=== PATIENT | male | born 1995 | race Caucasian/White ===

== ENCOUNTER 2016-07-28 18:23 | Emergency (ER) | payer OTHER ==
[2016-07-28 18:39] VITALS: BP 134/64; PULSE 110; TEMP 98.9; BMI 31.0
--- NOTE | 2016-07-28 19:02 | PDOC ---
History of Present Illness - General Chief Complaint: Cold Symptoms Stated Complaint: COLD SYMPTOMS Time Seen by Provider: 07/28/16 18:35 History Source: Patient Exam Limitations: No Limitations - History of Present Illness Initial Comments: 07/28/16 19:00 21 yr male with c/o body aches, chills cough, sore throat for 2 days. Pt taking ibuprofen last dose yesterday. no medical history. no allergies. non smoker. Severity: reports: mild (2 days) Past History - Past Medical History Allergies/Adverse Reactions: Allergies Allergy/AdvReac Type Severity Reaction Status Date / Time No Known Allergies Allergy Verified 07/28/16 18:26 Home Medications: Ambulatory Orders Ibuprofen [Motrin -] 600 mg PO Q6H PRN #18 tablet 06/22/13 Sulfamethoxazole/Trimethoprim [Bactrim DS -] 1 tab PO BID #13 tablet 06/22/13 Azithromycin [Zithromax 250mg Tablets -] 250 mg PO UTDICT #6 tab 07/28/16 Asthma: Yes - Psycho/Social/Smoking Cessation Hx Suicidal Ideation: No Smoking Status: No Smoking History: Never smoked Number of Cigarettes Smoked Daily: 0 Information on smoking cessation initiated: No Hx Alcohol Use: No Drug/Substance Use Hx: No Substance Use Type: None Respiratory Specific PMHX - Complaint Specific PMHX Angina: No Bronchitis: No Pneumonia: No Pulmonary Embolus: No TB (Tuberculosis): No Review of Systems - Review of Systems Able to Perform ROS?: Yes Is the patient limited Armenian proficient: No Constitutional: Yes: Symptoms Reported, See HPI HEENTM: Yes: See HPI Respiratory: Yes: See HPI *Physical Exam - Vital Signs Last Vital Signs Temp Pulse Resp BP Pulse Ox 98.9 F 110 H 18 134/64 99 07/28/16 18:25 07/28/16 18:25 07/28/16 18:25 07/28/16 18:25 07/28/16 18:25 - Physical Exam General Appearance: Yes: Nourished, Appropriately Dressed HEENT: positive: EOMI, MARU, Normal ENT Inspection, TMs Normal, Pharynx Normal, Pharyngeal Erythema Neck: positive: Supple. negative: Tender Respiratory/Chest: positive: Lungs Clear, Normal Breath Sounds. 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 NML intact, Fully Oriented, Alert, Normal Mood/ Affect ED Treatment Course - LABORATORY CBC & Chemistry Diagram: 07/28/16 17:30 Medical Decision Making - Medical Decision Making 07/28/16 19:02 cc: sore throat, fever chills cough will check for strep and flu neg abd pain neg nvd 07/28/16 20:20 neg strep neg flu cbc normal dc home with strict follow up with PMD mono is pending *DC/Admit/Observation/Transfer Diagnosis at time of Disposition: Viral syndrome - Discharge Dispostion Disposition: HOME Condition at time of disposition: Good - Prescriptions Prescriptions: Azithromycin [Zithromax 250mg Tablets -] 250 mg PO UTDICT #6 tab - Patient Instructions Additional Instructions: drink pleanty of fluids and get rest take ibuprofen as directed for any pain or fever take Zpack as directed for upper resp infection for 5 days (antibiotic) return to ER for any worsening symptoms
[2016-07-28 19:39] LABS: MCH 29.2 pg (25.7-33.7); MCHC 33.8 g/dl (32.0-35.9); MEAN CELL VOLUME 86.6 fl (80-96); MEAN PLT VOLUME 7.2 fl (7.5-11.1); PLATELET COUNT 263 K/MM3 (134-434); RDW 12.9 % (11.9-15.9); WHITE BLOOD COUNT 9.9 K/mm3 (4.0-10.0)
== END 2016-07-28 20:28 | disposition home or self-care (01) ==
LOC: JERFT 18:23
DX: J06.9 Acute upper respiratory infection, unspecified (principal); B97.89 Other viral agents as the cause of diseases classified elsewhere
CPT/HCPCS: 36415; 85027; 86308; 87070; 87430; 87804; 99281-25

== ENCOUNTER 2016-11-23 15:06 | Emergency (ER) | payer OTHER ==
[2016-11-23 15:16] VITALS: BP 121/52; PULSE 96; TEMP 98.3; BMI 31.1
--- NOTE | 2016-11-23 15:50 | PDOC ---
History of Present Illness - General Chief Complaint: Edema Stated Complaint: SWOLLEN RT HAND Time Seen by Provider: 11/23/16 15:19 History Source: Patient Exam Limitations: No Limitations - History of Present Illness Initial Comments: 11/23/16 15:48 21-year-old male presents to the ED with complaints of right hand pain. Patient states was playing basketball and landed straight on his knuckles now with deformity and pain with movement. Patient states had injury to affected area before but denies any fracture, surgical intervention, or radiation of pain. Timing/Duration: intermittent Severity: mild Associated Symptoms: reports: denies symptoms Past History - Past Medical History Allergies/Adverse Reactions: Allergies Allergy/AdvReac Type Severity Reaction Status Date / Time No Known Allergies Allergy Verified 07/28/16 18:26 Home Medications: Ambulatory Orders NK [No Known Home Medication] 11/23/16 Asthma: Yes - Psycho/Social/Smoking Cessation Hx Suicidal Ideation: No Smoking Status: No Smoking History: Never smoked Number of Cigarettes Smoked Daily: 0 Hx Alcohol Use: No Drug/Substance Use Hx: No Substance Use Type: None Patient Lives Alone: No Lives with/in: parents Review of Systems - Review of Systems Able to Perform ROS?: Yes Constitutional: No: Symptoms Reported Musculoskeletal: Yes: Joint Pain (rt hand ). No: Muscle Pain Integumentary: Yes: Lumps Neurological: No: Symptoms reported Endocrine: No: Symptoms Reported *Physical Exam - Vital Signs Last Vital Signs Temp Pulse Resp BP Pulse Ox 98.3 F 96 H 18 121/52 98 11/23/16 15:13 11/23/16 15:13 11/23/16 15:13 11/23/16 15:13 11/23/16 15:13 - Physical Exam General Appearance: Yes: Nourished, Appropriately Dressed, Apparent Distress Comments:: 11/23/16 15:50 2+ right radial Extremity: positive: Normal Capillary Refill, Normal Range of Motion, Tender ( over fourth metacarpal). negative: Normal Inspection (noted raised firm area over midshaft of 4th metacarpal) Integumentary: positive: Normal Color, Warm, Swelling (over right 4th metacarapal) Neurologic: positive: Motor Strength 5/5 (rt hand grasp) Procedures - Splinting Splint Location: Right: Forearm Pre-Proc Neuro Vasc Exam: normal Hand-Made Type: orthoglass Splint Type: Yes: Short Arm Post-Proc Neuro Vasc Exam: normal Nilson Bandage: 4" Sling: No ED Treatment Course - RADIOLOGY Radiology Studies Ordered: Category Date Time Status HAND- RIGHT [RAD] Stat Radiology 11/23/16 15:30 Ordered Medical Decision Making - Medical Decision Making 11/23/16 15:53 Patient with right hand injury after falling while playing basketball. Patient on exam had noted deformity over the right fourth metacarpal concerning for fracture. Patient ordered for x-ray. 11/23/16 17:37 Patient with slightly displaced fracture of the fourth metacarpal. Patient placed in Ortho-Glass splint and will follow up with Dr. Stroud. *DC/Admit/Observation/Transfer Diagnosis at time of Disposition: Metacarpal bone fracture Qualifiers: Encounter type: initial encounter Fracture type: closed Metacarpal location: neck Fracture alignment: displaced Laterality: right - Discharge Dispostion Disposition: HOME Condition at time of disposition: Good - Referrals Referrals: Ester Horvath MD [Primary Care Provider] - Edson Stroud MD [Staff Physician] - - Patient Instructions Printed Discharge Instructions: DI for a Hand Fracture Additional Instructions: Please up with referred orthopedist and may take Motrin or Tylenol for discomfort. May apply ice to the affected area.
== END 2016-11-23 17:44 | disposition home or self-care (01) ==
LOC: JERFT 15:06
PROC: 2W3JX1Z Immobilization of Right Finger using Splint (ICD-10-PCS; principal; 2016-11-23)
DX: S62.304A Unspecified fracture of fourth metacarpal bone, right hand, initial encounter for closed fracture (principal); W21.05XA Struck by basketball, initial encounter; Y93.67 Activity, basketball; Y92.89 Other specified places as the place of occurrence of the external cause
CPT/HCPCS: 29125; 73130-TC-RT; 99281-25

== ENCOUNTER 2017-02-06 11:17 | Emergency (ER) | payer OTHER ==
[2017-02-06 11:21] VITALS: BP 133/86; PULSE 87; TEMP 98.4; BMI 31.1
[2017-02-06] MEDS ORDERED: SULFAMETHOXAZOLE/TRIMETHOPRIM 800MG/160MG D.S. TABLET PO ONE (11:46)
[2017-02-06] MEDS ORDERED: SULFAMETHOXAZOLE/TRIMETHOPRIM 800MG/160MG D.S. TABLET ONE (11:50)
--- NOTE | 2017-02-06 11:51 | PDOC ---
History of Present Illness - General Chief Complaint: Abscess Boil Stated Complaint: INFECTION Time Seen by Provider: 02/06/17 11:41 History Source: Patient Exam Limitations: No Limitations - History of Present Illness Initial Comments: 02/06/17 11:45 Patient came for evaluation of lower abdomen infection. has suffered from folliculitis in the past, had to come for incision and drainage. 2 days ago noted some swelling and tenderness to his right lower abdomen at area where he shaves above his pubis, states squeezed a little pus from it yesterday but has not any purulent drainage today. Denies fever, no other areas infected. Timing/Duration: reports: getting worse Severity: Yes: mild, moderate Location: reports: torso Associated Symptoms: reports: denies symptoms Past History - Travel Traveled outside of the country in the last 30 days: No Close contact w/someone who was outside of country & ill: No - Past Medical History Allergies/Adverse Reactions: Allergies Allergy/AdvReac Type Severity Reaction Status Date / Time No Known Allergies Allergy Verified 02/06/17 11:21 Home Medications: Ambulatory Orders Sulfamethoxazole/Trimethoprim [Bactrim Ds -] 1 tab PO BID #14 tablet 02/06/17 Asthma: Yes ( A CHILD) - Suicide/Smoking/Psychosocial Hx Smoking Status: No Smoking History: Never smoked Number of Cigarettes Smoked Daily: 0 Hx Alcohol Use: No Drug/Substance Use Hx: No Substance Use Type: None Review of Systems - Review of Systems Able to Perform ROS?: Yes Is the patient limited Serbian proficient: Yes Constitutional: Yes: See HPI. No: Symptoms Reported, Fever, Malaise HEENTM: Yes: See HPI. No: Symptoms Reported Integumentary: Yes: Symptoms Reported, See HPI, Erythema, Lesions, Lumps All Other Systems: Reviewed and Negative *Physical Exam - Vital Signs Last Vital Signs Temp Pulse Resp BP Pulse Ox 98.4 F 87 20 133/86 98 02/06/17 11:18 02/06/17 11:18 02/06/17 11:18 02/06/17 11:18 02/06/17 11:18 - Physical Exam General Appearance: Yes: Nourished, Appropriately Dressed, Apparent Distress, Mild Distress HEENT: positive: MARU, Normal ENT Inspection, TMs Normal, Pharynx Normal Neck: positive: Tender, Supple Respiratory/Chest: positive: Lungs Clear Gastrointestinal/Abdominal: positive: Normal Bowel Sounds, Soft Extremity: positive: Normal Inspection, Normal Range of Motion Integumentary: positive: Normal Color, Erythema (with indurated area approximately 1 cm and right lower abdomen upper groin area. Has no pointing, no drainage, no area of fluctuance.) Neurologic: positive: oyster shucker II-XII NML intact, Fully Oriented, Alert, Normal Mood/ Affect Progress Note - Progress Note Progress Note: Right lower abdomen folliculitis/early abscess. Not pointing therefore unable to incise and drain. Will start on Bactrim and have patient continue to hot soak. Return as needed for incision and drainage *DC/Admit/Observation/Transfer Diagnosis at time of Disposition: Folliculitis - Discharge Dispostion Disposition: HOME Condition at time of disposition: Stable Admit: No - Patient Instructions Printed Discharge Instructions: DI for Incision and Drainage of a Skin Abscess , DI for Skin Abscess Additional Instructions: Rest, keep area elevated. Avoid strenuous activity or exercise until wound is healed Use hot soaks to area to bring more blood to the surface and encourage drainage May change dressings as needed to keep clean - trying to avoid removal of packing for 2 days. Change his dressing daily until the wound is completely healed. May use Tylenol or Motrin for mild pain relief Use stronger medications as directed and prescribed Continue all medications as prescribed Followup with private physician in 2-3 days for wound check Return to emergency Department for worsening swelling, pain, redness, fevers as needed
== END 2017-02-06 11:55 | disposition home or self-care (01) ==
LOC: JERFT 11:17
DX: L73.8 Other specified follicular disorders (principal)
CPT/HCPCS: 99281-25

== ENCOUNTER 2017-03-24 08:21 | Emergency (ER) | payer OTHER ==
[2017-03-24 08:29] VITALS: BP 114/83; PULSE 81; TEMP 98; BMI 31.1
--- NOTE | 2017-03-24 09:32 | PDOC ---
History of Present Illness - General Chief Complaint: Cold Symptoms Stated Complaint: cold symptoms Time Seen by Provider: 03/24/17 09:07 History Source: Patient Exam Limitations: No Limitations - History of Present Illness Initial Comments: 03/24/17 09:08 This is a 22 male without significant past medical history who woke up this morning and felt short of breath until he had a large cough. Patient states his the for sinuses happen to him and TM nervous which is why presented to the emergency department. He stated that time he was having a hard time getting air in and out's the area was getting he felt he was able to use. States for the past week he has been waking up and vomiting every morning. He denies any fevers , chills, headaches, dizziness, blurry vision, chest pain, abdominal pain, nausea, diarrhea, urinary difficulties. PMD: Ester Horvath PMH: Denies PSH: Denies NKDA Patient denies any recent travel also denied states her contact with her wound was traveled outside the [place]. Past History - Past Medical History Allergies/Adverse Reactions: Allergies Allergy/AdvReac Type Severity Reaction Status Date / Time No Known Allergies Allergy Verified 03/24/17 08:29 Home Medications: Ambulatory Orders NK [No Known Home Medication] 03/24/17 Asthma: Yes ( A CHILD) COPD: No - Suicide/Smoking/Psychosocial Hx Smoking Status: No Smoking History: Never smoked Number of Cigarettes Smoked Daily: 0 Information on smoking cessation initiated: No Hx Alcohol Use: No Drug/Substance Use Hx: No Substance Use Type: None Respiratory Specific PMHX - Complaint Specific PMHX Angina: No Bronchitis: No Pneumonia: No Pulmonary Embolus: No TB (Tuberculosis): No Review of Systems - Review of Systems Able to Perform ROS?: Yes Is the patient limited [place] proficient: No Constitutional: No: Symptoms Reported HEENTM: Yes: See HPI Respiratory: Yes: See HPI Cardiac (ROS): No: Symptoms Reported ABD/GI: No: Symptoms Reported : No: Symptoms Reported Musculoskeletal: No: Symptoms Reported Integumentary: No: Symptoms Reported Neurological: No: Symptoms reported *Physical Exam - Vital Signs Last Vital Signs Temp Pulse Resp BP Pulse Ox 98 F 81 18 114/83 99 03/24/17 08:26 03/24/17 08:26 03/24/17 08:26 03/24/17 08:26 03/24/17 08:26 - Physical Exam General Appearance: Yes: Appropriately Dressed. No: Apparent Distress HEENT: positive: EOMI, MARU, Normal ENT Inspection, Normal Voice, Other ( cobblestoning present) Neck: positive: Trachea midline, Supple. negative: Tender, Stridor Respiratory/Chest: positive: Lungs Clear, Normal Breath Sounds. negative: Chest Tender, Respiratory Distress, Accessory Muscle Use Cardiovascular: positive: Regular Rhythm, Regular Rate, S1, S2. negative: Edema , JVD, Murmur Gastrointestinal/Abdominal: positive: Normal Bowel Sounds, Soft. negative: Tender, Organomegaly Musculoskeletal: positive: Normal Inspection. 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 Patient stated he felt like it was a minute that he was unable to breathe but after one large cough was able to clear his airway and continue breathing. Upon examination patient is noted to have nasal congestion and cobblestoning of the oropharynx. There is no erythema or exudates noted in the oropharynx. There is no sinus tenderness. TMs pearly tran with appropriate light reflex. Neck is nontender and supple. Respirations even and unlabored without assess for muscle use. Lungs clear to auscultation bilaterally. No stridor noted. RRR. S1 and S2 presents. No murmur rub or gallop present. Normoactive bowel sounds. Abdomen soft nontender nondistended. Moves all extremities x4 strength 5 out of 5. Differential diagnoses include bronchitis, pneumonia, URI. I'll obtain a chest x-ray and reevaluate once results are completed. 03/24/17 10:04 Wet read of chest x-ray by me: Costal angles clear no signs of infiltrate. No consolidations noted. Cardiac silhouette within normal limits. Rosamaria appear normal. Visualized osseous structures intact. There is no pneumothorax. No acute pulmonary disease. I will discharge the patient with instructions to follow-up as primary doctor symptoms do not resolve within the next 4 days. Did explain to the patient that this is not a final review the x-ray and patient agrees to be contacted if there is a change in the final read. *DC/Admit/Observation/Transfer Diagnosis at time of Disposition: Viral syndrome - Discharge Dispostion Disposition: HOME Condition at time of disposition: Stable Admit: No - Referrals Referrals: Ester Horvath MD [Primary Care Provider] - - Patient Instructions Printed Discharge Instructions: DI for Viral Upper Respiratory Infection -- Adult Additional Instructions: Drink plenty of fluids. Take Tylenol or Motrin as needed for fevers or pain. Follow manufacturers instructions for appropriate dosing. Use of humidifier get help alleviate symptoms related to mucous production. Symptoms do not resolve within the next 4 days contact her primary doctor for further evaluation. Return to emergency department for fevers, chills, shortness of breath, chest pain, worsening symptoms, any other concerns. Thank you very much for choosing us to provide your emergent healthcare needs. - Post Discharge Activity
== END 2017-03-24 10:15 | disposition home or self-care (01) ==
LOC: JERFT 08:21
DX: J06.9 Acute upper respiratory infection, unspecified (principal); B97.89 Other viral agents as the cause of diseases classified elsewhere
CPT/HCPCS: 71020-TC; 99281-25

== ENCOUNTER 2018-02-08 10:52 | Emergency (ER) | payer OTHER ==
[2018-02-08 10:57] VITALS: BP 124/67; PULSE 73; TEMP 98.3; BMI 30.7
--- NOTE | 2018-02-08 11:14 | PDOC ---
History of Present Illness - General Chief Complaint: Pain Stated Complaint: PAIN Time Seen by Provider: 02/08/18 11:00 - History of Present Illness Initial Comments: 02/08/18 11:12 23 yo M with no significant pmh who p/w left sided testicular pain. Patient reports waking up this morning and experiencing sudden onset of achy, left sided testicular pain and swelling lasting until time of arrival to ED. Pain and swelling now resolved. No identifiable triggers or alleviators. Non positional. Currently sexually active with girlfriend. Uses condom protection occasionally. Denies h/o STI's. No penile lesions, discharge, swelling, bulging.Patient denies trauma to testicle, or h/o similar symptoms. Patient denies N/V, F,C, CP, SOB, urinary complaints, hematuria, abdominal pain , diarrhea, constipation, BPR, lightheadedness, weakness, sensory changes. PMHx: as noted above ROS: as noted SHx: 2 cigarettes per week. Social Etoh. Denies IVDA. Allergies: PCN PMD: Ester Horvath Past History - Past Medical History Allergies/Adverse Reactions: Allergies Allergy/AdvReac Type Severity Reaction Status Date / Time Penicillins Allergy Verified 02/08/18 10:53 Home Medications: Ambulatory Orders NK [No Known Home Medication] 03/24/17 Asthma: Yes ( A CHILD) COPD: No DVT: No - Suicide/Smoking/Psychosocial Hx Smoking Status: No Smoking History: Never smoked Have you smoked in the past 12 months: No Number of Cigarettes Smoked Daily: 0 Information on smoking cessation initiated: No Hx Alcohol Use: No Drug/Substance Use Hx: No Substance Use Type: None Review of Systems - Review of Systems Comments:: 02/08/18 11:12 GENERAL/CONSTITUTIONAL: No fever or chills. No weakness. HEAD, EYES, EARS, NOSE AND THROAT: No change in vision. No ear pain or discharge. No sore throat. CARDIOVASCULAR: No chest pain or shortness of breath RESPIRATORY: No cough, wheezing, or hemoptysis. GASTROINTESTINAL: No nausea, vomiting, diarrhea or constipation. GENITOURINARY: + Left sided testicular pain, and swelling. No dysuria, frequency , or change in urination. MUSCULOSKELETAL: No joint or muscle swelling or pain. No neck or back pain. SKIN: No rash NEUROLOGIC: No headache, vertigo, loss of consciousness, or change in strength/ sensation. ENDOCRINE: No increased thirst. No abnormal weight change HEMATOLOGIC/LYMPHATIC: No anemia, easy bleeding, or history of blood clots. ALLERGIC/IMMUNOLOGIC: No hives or skin allergy. *Physical Exam - Vital Signs Last Vital Signs Temp Pulse Resp BP Pulse Ox 98.3 F 73 18 124/67 100 02/08/18 10:54 02/08/18 10:54 02/08/18 10:54 02/08/18 10:54 02/08/18 10:54 - Physical Exam Comments: 02/08/18 11:12 GENERAL: Awake, alert, and fully oriented, in no acute distress HEAD: No signs of trauma, normocephalic, atraumatic EYES: PERRLA, EOMI, sclera anicteric, conjunctiva clear ENT: Hearing grossly normal, nares patent, oropharynx clear without exudates. Moist mucosa NECK: Normal ROM, supple, no lymphadenopathy, JVD, or masses LUNGS: No distress, speaks full sentences, clear to auscultation bilaterally HEART: Regular rate and rhythm, normal S1 and S2, no murmurs, rubs or gallops, peripheral pulses normal and equal bilaterally. ABDOMEN: Soft, nontender, normoactive bowel sounds. No guarding, no rebound. No masses. Neg CVA ttp. : Neg scrotal/testicular swelling, ttp, or skin change. Nml cremasteric reflex and vertical positioning of testicle, with absent inguinal bulge or lymphadenopathy. Neg penile discharge, or lesions. EXTREMITIES : Normal inspection, Normal range of motion, no edema. No clubbing or cyanosis. SKIN: Warm, Dry, normal turgor, no rashes or lesions noted Medical Decision Making - Medical Decision Making 02/08/18 11:41 23 yo M with no significant pmh who p/w left sided testicular pain. VSS, AF. Left testicle intact with absent swelling, erythema, or ttp.Will consider intermittent testicular torsion vs. other testicular pathology, epididymitis, orchitis, hydrocele, varicocele. Perineum intact, no evidence of perineum infxn or concern for fournieres gangrene. Low suspicion nephrolithiais. Ed Course: Testicular U/S UA, G/C, trichomonas 02/08/18 13:35 Testicular U/S: Small left epidydmal cyst. Patient stable for d/c with return precautions. Advised to f/u with Urology. 02/08/18 13:36 UA: Neg *DC/Admit/Observation/Transfer Diagnosis at time of Disposition: Testicle pain - Discharge Dispostion Condition at time of disposition: Stable Decision to Admit order: No - Referrals Referrals: Ester Horvath MD [Primary Care Provider] - Adrián Cortes MD [Staff Physician] - - Patient Instructions Printed Discharge Instructions: DI for Testicular Pain Additional Instructions: Please return to the emergency department with any new or worsening symptoms or concerns. Please follow up with your primary care physician within 72 hours. Please follow up with urology within 72 hours. - Post Discharge Activity Forms/Work/School Notes: Back to Work - Attestations Physician Attestion: 02/08/18 11:12 I attest to the information provided in this note.
[2018-02-08 12:29] LABS: URINE APPEARANCE CLEAR; URINE BILIRUBIN NEGATIVE (<2.0 mg/dL); URINE COLOR LTYELLOW; URINE GLUCOSE (UA) NEGATIVE (NEGATIVE); URINE KETONE NEGATIVE (NEGATIVE); URINE LEUK ESTERASE NEGATIVE (NEGATIVE); URINE NITRITE NEGATIVE (NEGATIVE); URINE PROTEIN NEGATIVE (NEGATIVE); URINE UROBILINOGEN NEGATIVE mg/dL (0.2-1.0)
[2018-02-08 12:38] LABS: URINE MUCUS RARE
--- NOTE | 2018-02-08 12:49 | PDOC ---
Attending Attestation - Resident Resident Name: Demetrius Yatesson - ED Attending Attestation I have performed the following: I have examined & evaluated the patient, The case was reviewed & discussed with the resident, I agree w/resident's findings & plan - HPI HPI: 02/08/18 12:51 Mr. Christiano Rivero is a 23-year-old male with past medical history significant for childhood Asthma presents to the emergency department with acute L. sided testicular pain this morning, since resolved. Achy in quality, no trauma or recent intercourse. No urinary sx or penile discharge, AP, n/v/d, fever or chills.. ROS Negative: Testicular Trauma, discharge, bleeding, fever, chills, abdominal pain, diarrhea, dysuria, hematuria, frequency or urgency to urinate. Denies history of STD or chlamydia. Denies taking any medication for the pain. Social history: Patient states he is active with his girlfriend. PCP: Ester Horvath MD - Physicial Exam PE: 02/08/18 12:51 NAD, well appearing, MMM, nl conjunctiva, anicteric; neck supple. lungs clear, RRR, abdomen soft nontender. NAVARRO x4, no focal neuro deficits. No peripheral edema. normal color for ethnicity, WWP. exam: normal external genitalia, no lesions, normal testicular lie, no scrotal or testicular edema or tenderness. +cremaster reflex bilaterally. no hernia. 02/08/18 13:33 - Medical Decision Making 02/08/18 12:51 Mr. Christiano Rivero is a 23 year old male with past medical history significant for childhood asthma presents to the emergency department with acute onset of testicular pain. DDx. Male : testicular torsion, hernia, orchitis, epididymitis, UTI, pyelonephritis, STD Vital signs reviewed, wnl. no pain here Prior notes reviewed, including admissions, discharges and consultations. laboratory results and imaging reviewed, basic UA neg, GC/chlamydia/trich testing sent Scrotal US: left epidymal cyst, no hydrocele, no torsion. normal testes. follow up on urine cultures/STD testing. reassuring and normal testicular exam with ultrasound results neg for torsion or pathology. Pt informed of my clinical impression, treatment recommendations and disposition plan. All questions answered to patient's satisfaction and expressed understanding and comfort with this. Reasons for returning to the ED sooner discussed with the patient otherwise, follow up with primary care physician. At the time of discharge, the patient is alert, clinically improved, tolerating po and verbalizes understanding of instructions. urology followup given. scrotal elevation, PRN motrin/tylenol for pain control. f/u culture results as discussed 02/08/18 13:51
== END 2018-02-08 13:56 | disposition home or self-care (01) ==
LOC: JER 10:52
DX: N50.812 Left testicular pain (principal); N50.3 Cyst of epididymis
CPT/HCPCS: 36415; 76870-TC; 81003; 81015; 87491; 87591; 87661; 99282-25

== ENCOUNTER 2019-04-07 13:00 | Emergency (ER) | payer OTHER ==
[2019-04-07 13:23] VITALS: BMI 34.4
--- NOTE | 2019-04-07 13:24 | PDOC ---
Rapid Medical Evaluation Time Seen by Provider: 04/07/19 13:21 Medical Evaluation: Allergies Allergy/AdvReac Type Severity Reaction Status Date / Time Penicillins Allergy Verified 02/08/18 10:53 04/07/19 13:21 I have performed a brief in-person evaluation of this patient. The patient presents with a chief complaint of:abd pain x 1 year, EGD this summer with no diagnosis. + cvomiting in am, stopped smokingh marijuana 1 week ago. No bleeding to bowels / or emesis Pertinent physical exam findings: abd soft , no rebound or guarding I have ordered the following: nothing The patient will proceed to the ED for further evaluation. Discharge Disposition - Diagnosis Abdominal pain - Referrals - Patient Instructions - Post Discharge Activity
--- NOTE | 2019-04-07 13:54 | PDOC ---
History of Present Illness - General Chief Complaint: Pain, Acute Stated Complaint: ABD PAIN Time Seen by Provider: 04/07/19 13:21 - History of Present Illness Initial Comments: Mr. Rivero is a 24 y/o male with no significant PMH presenting today for abdominal pain. Reports that he has been experiencing periumbilical abdominal pain for the past year, but that it is worse today. Pain does not radiate anywhere else. Worsens with movement. Reports nausea and vomiting almost every day. Reports frequent diarrhea that started a couple months ago. Denies fever/ chills. Denies shortness of breath/chest pain. No blood in the stool. SocHx: smokes marijuana daily Past History - Past Medical History Allergies/Adverse Reactions: Allergies Allergy/AdvReac Type Severity Reaction Status Date / Time Penicillins Allergy Verified 04/07/19 13:23 Home Medications: Ambulatory Orders Ciprofloxacin HCl [Cipro] 500 mg PO BID 7 Days #14 tablet 04/07/19 metroNIDAZOLE [Flagyl -] 500 mg PO TID #21 tablet 04/07/19 Asthma: Yes ( A CHILD) COPD: No DVT: No - Psycho Social/Smoking Cessation Hx Smoking Status: No Smoking History: Current some day smoker Have you smoked in the past 12 months: No Number of Cigarettes Smoked Daily: 0 Information on smoking cessation initiated: No Hx Alcohol Use: Yes Drug/Substance Use Hx: Yes (marijuana) Substance Use Type: None Review of Systems - Review of Systems Comments:: GENERAL/CONSTITUTIONAL: No fever or chills. No weakness._ HEAD, EYES, EARS, NOSE AND THROAT: No change in vision. No change in hearing. No sore throat._ CARDIOVASCULAR: No chest pain or shortness of breath_ RESPIRATORY: Denies cough, hemoptysis_ GASTROINTESTINAL: Reports abdominal pain. Reports nausea, vomiting, diarrhea. No constipation. GENITOURINARY: No dysuria, frequency, or change in urination._ MUSCULOSKELETAL: No joint or muscle swelling or pain. No neck or back pain._ SKIN: No rash_ NEUROLOGIC: No headache, vertigo, loss of consciousness, or change in strength/ sensation._ ENDOCRINE: No increased thirst. No abnormal weight change_ HEMATOLOGIC/LYMPHATIC: No anemia, easy bleeding, or history of blood clots._ ALLERGIC/IMMUNOLOGIC: No hives or skin allergy._ *Physical Exam - Vital Signs Last Vital Signs Temp Pulse Resp BP Pulse Ox 98.1 F 92 H 14 143/88 96 04/07/19 13:21 04/07/19 13:21 04/07/19 13:21 04/07/19 13:21 04/07/19 13:21 - Physical Exam Comments: GENERAL: Awake, alert, and oriented to person/place/time, in no acute distress_ HEAD: No signs of trauma, normocephalic, atraumatic _ EYES: PERRLA, EOMI, sclera anicteric, conjunctiva clear_ ENT: Hearing grossly normal, nares patent, oropharynx clear without exudates. No uvular deviation. Moist mucosa_ NECK: Normal ROM, supple, no lymphadenopathy, JVD, or masses_ LUNGS: No distress, speaks in full sentences, clear to auscultation bilaterally _ HEART: Regular rate and rhythm, normal S1 and S2, no murmurs appreciated, peripheral pulses normal and equal bilaterally._ ABDOMEN: Soft, diffuse TTP worse in periumbilical area. No guarding, no rebound. No masses_ EXTREMITIES: Normal inspection, Normal range of motion, no edema. No clubbing or cyanosis_ NEUROLOGICAL: Cranial nerves II through XII grossly intact. Normal speech, normal gait, no focal sensorimotor deficits _ SKIN: Warm, Dry, normal turgor, no rashes or lesions noted_ ED Treatment Course - LABORATORY CBC & Chemistry Diagram: 04/07/19 15:19 04/07/19 15:19 Medical Decision Making - Medical Decision Making 24M here with abdominal pain over the past year. Reports near daily nausea/ vomiting and diarrhea. Seen by GI with endoscopy over the summer. DDx includes Crohn's vs UC vs gastritis. -cbc, cmp -ct abd/pelv -lipase -pepcid, maalox, zofran, viscous lidocaine, fluids 04/07/19 14:15 D/w Dr. Delgadillo, patient's GI. Patient's endoscopy over the summer was negative. No colonoscopy done. States that pt did not have diarrhea when seen over the summer. He suspects marijuana or stress related, but recommends work up. 04/07/19 1530 Labs reviewed. WBC wnl. Lipase wnl. Laboratory Tests 04/07/19 04/07/19 04/07/19 15:19 15:19 15:19 WBC 5.2 RBC 5.79 H Hgb 16.8 Hct 49.8 H MCV 86.0 MCH 29.1 MCHC 33.8 RDW 13.1 Plt Count 306 MPV 7.3 L Absolute Neuts (auto) 2.8 Neutrophils % 54.6 Lymphocytes % 26.4 Monocytes % 15.9 H Eosinophils % 2.6 Basophils % 0.5 Nucleated RBC % 0 Sodium 136 Potassium 4.4 Chloride 105 Carbon Dioxide 26 Anion Gap 6 L BUN 9.7 Creatinine 1.1 Est GFR (CKD-EPI)AfAm 109.09 Est GFR (CKD-EPI)NonAf 94.12 Random Glucose 80 Calcium 9.6 Total Bilirubin 0.5 AST 21 ALT 38 Alkaline Phosphatase 76 Total Protein 8.3 H Albumin 4.0 Lipase 69 L Urine Color Dk yellow Urine Appearance Clear Urine pH 6.0 Ur Specific [place] 1.031 Urine Protein 1+ H Urine Glucose (UA) Negative Urine Ketones 1+ H Urine Blood 1+ H Urine Nitrite Negative Urine Bilirubin Negative Urine Urobilinogen 1.0 Ur Leukocyte Esterase Negative Urine WBC (Auto) 2 Urine RBC (Auto) 16 Urine Casts (Auto) 7 U Epithel Cells (Auto) 0.8 Urine Bacteria (Auto) 0.7 04/07/19 18:45 CT abd/pelv shows signs of acute enterocolitis and prominent hepatic steatosis. Patient reassessed. Reports that his pain has improved with medication and fluids. Plan to d/c home. Discussed extensively the importance of following up with his PCP and his GI specialist. All questions answered. Patient verbalized agreement and understanding of plan. Return precautions given. D/w Dr. Delgadillo, who recommends PCP follow up and cessation of marijuana use and starting cipro/flagyl. Discharge - Discharge Information Problems reviewed: Yes Clinical Impression/Diagnosis: Abdominal pain Qualifiers: Abdominal location: periumbilical Qualified Code(s): R10.33 - Periumbilical pain Condition: Stable Disposition: HOME - Additional Discharge Information Prescriptions: Ciprofloxacin HCl [Cipro] 500 mg PO BID 7 Days #14 tablet metroNIDAZOLE [Flagyl -] 500 mg PO TID #21 tablet - Follow up/Referral Referrals: Ester Horvath MD [Primary Care Provider] - - Patient Discharge Instructions Patient Printed Discharge Instructions: DI for Abdominal Pain-Adult, DI for Colitis Additional Instructions: Please make a follow up appointment with your PCP Dr. Horvath and your GI doctor (Dr. Delgadillo) Please take pepcid over the counter as needed for your abdominal pain. Please take antibiotics Cipro 500 mg two times per day and Flagyl 500 mg three times per day for 1 week. Please try to stop smoking marijuana, and work on ways to reduce stress. If you experience any new, worsening, or concerning symptoms, including severe nausea, vomiting, blood in the vomiting or stool, fever, chills, severe diarrhea , or any other concerns, please return to the emergency department. - Post Discharge Activity
[2019-04-07] MEDS ORDERED: ONDANSETRON 4 MG/2 ML VIAL IVPUSH ONE (14:13)
[2019-04-07] MEDS ORDERED: FAMOTIDINE 20 MG/50 ML IVPB 20 MG/50 ML MG IVPB ONE ×2 (14:13→14:58)
[2019-04-07] MEDS ORDERED: MAG HYDROX/AL HYDROX/SIMETH -MYLANTA- ORAL SUSPENSION PO ONE (14:13)
[2019-04-07] MEDS ORDERED: LIDOCAINE VISCOUS 2% ORAL/TOP 20 ML UNIT-DOSE CUP MM ONE (14:13)
[2019-04-07] MEDS ORDERED: SODIUM CHLORIDE 0.9% 500 ML INFUS.BAG IV ONE (14:14)
[2019-04-07] MEDS ORDERED: MAG HYDROX/AL HYDROX/SIMETH 30 ML UNIT-DOSE CUP ONE (14:57)
[2019-04-07] MEDS ORDERED: ONDANSETRON 4 MG/2 ML VIAL ONE (14:57)
[2019-04-07] MEDS ORDERED: LIDOCAINE VISCOUS 2% ORAL/TOP 20 ML UNIT-DOSE CUP ONE (14:57)
--- NOTE | 2019-04-07 15:19 | PDOC ---
Documentation entered by Mariah Seay SCRIBE, acting as scribe for Porfirio Nash MD. Porfirio Nash MD: This documentation has been prepared by the Geena fermin Nirvannie, SCRIBE, under my direction and personally reviewed by me in its entirety. I confirm that the documentation accurately reflects all work, treatment, procedures, and medical decision making performed by me. Attending Attestation - Resident Resident Name: Rick Guallpa - ED Attending Attestation I have performed the following: I have examined & evaluated the patient, The case was reviewed & discussed with the resident, I agree w/resident's findings & plan, Exceptions are as noted - HPI HPI: 04/07/19 14:38 CC: Abdominal pain. HPI: The patient is a 24 year old male, with a significant past medical history of asthma and recent cessation of marijuana, who presents to the emergency department with, worsening nausea, vomiting, and abdominal pain. Patient notes chronic abdominal pain, nausea, and vomiting for the past year but, endorses today it has become worse. He notes to have recently quitting smoking marijuana last week. He denies any recent chest pain or shortness of breath. Allergies: Penicillins. - Physicial Exam PE: 04/07/19 18:56 Vitals: Triage Vital signs reviewed General Appearance: No acute distress, well nourished well developed, Head: Atraumatic, Neck: Supple; no Nucal rigidity Chest Wall: Nontender Cardiac: Regular rate and rhythym, no murmurs, no rubs, no gallops, Lungs: Clear to auscultation bilateral, good air movement bilaterally, Abdomen: Soft, non distended, normal bowel sounds, diffuse lower abdominal tenderness to palpation Extremities: Full range of motion to all extremities, no cyanosis, clubbing, or edema Skin: Warm and dry, no rashes or lesions, no rash, no petechiae diffuse lower abdominal tenderness to palpation Psych: Normal mood, normal affect - Medical Decision Making 04/07/19 18:57 24 years old with chronic abdominal discomfort nausea vomiting diarrhea Has had an endoscopy by GI with no acute findings here for persistence of symptoms Labs within normal limits CAT scan demonstrates colitis given age and persistence of symptoms concern for an inflammatory bowel disease concern was discussed with gastroenterology will start patient on 2-week course of Cipro Flagyl he will follow-up with gastroenterology after completion of his antibiotic regimen for colonoscopy and further management Findings, the need for follow-up and strict return instructions discussed with patient and family.
[2019-04-07 15:39] LABS: BASO % 0.5 % (0-2.0); EOS % 2.6 % (0-4.5); HEMATOCRIT 49.8 % (35.4-49); HEMOGLOBIN 16.8 GM/dL (11.7-16.9); LYMPH % 26.4 % (8-40); MCH 29.1 pg (25.7-33.7); MCHC 33.8 g/dl (32.0-35.9); MEAN PLT VOLUME 7.3 fl (7.5-11.1); MONO % 15.9 % (3.8-10.2); NEUT % 54.6 % (42.8-82.8); PLATELET COUNT 306 K/MM3 (134-434); RBC 5.79 M/mm3 (4.00-5.60); RDW 13.1 % (11.9-15.9); WHITE BLOOD COUNT 5.2 K/mm3 (4.0-10.0)
[2019-04-07 15:42] LABS: EPI CELLS 0.8 /HPF (0-5/HPF); HYALINE CASTS 7 /lpf (0-8); URINE APPEARANCE CLEAR; URINE BACTERIA 0.7 /hpf (NEGATIVE); URINE BILIRUBIN NEGATIVE (NEGATIVE); URINE COLOR DK YELLOW; URINE GLUCOSE (UA) NEGATIVE (NEGATIVE); URINE KETONE 1+ (NEGATIVE); URINE LEUK ESTERASE NEGATIVE (NEGATIVE); URINE NITRITE NEGATIVE (NEGATIVE); URINE PROTEIN 1+ (NEGATIVE); URINE RBC 16 /hpf (0-4); URINE WBC 2 /hpf (0-5)
[2019-04-07 16:12] LABS: BILIRUBIN,TOTAL 0.5 mg/dL (0.2-1); BLOOD UREA NITROGEN 9.7 mg/dL (7-18); CALCIUM 9.6 mg/dL (8.5-10.1); CREATININE 1.1 mg/dL (0.55-1.3); POTASSIUM 4.4 mmol/L (3.5-5.1); TOT PROT 8.3 g/dl (6.4-8.2)
[2019-04-07 17:49] VITALS: BP 133/87; PULSE 86; TEMP 97.9
== END 2019-04-07 19:27 | disposition home or self-care (01) ==
LOC: JER 13:00
PROC: 3E033GC Introduction of Other Therapeutic Substance into Peripheral Vein, Percutaneous Approach (ICD-10-PCS; principal; 2019-04-07)
PROC: 3E033GC Introduction of Other Therapeutic Substance into Peripheral Vein, Percutaneous Approach (ICD-10-PCS; 2019-04-07)
DX: R10.33 Periumbilical pain (principal); Z88.0 Allergy status to penicillin
CPT/HCPCS: 36415; 74177-TC; 80053; 81003; 83690; 85025; 87086; 99282-25

== ENCOUNTER 2019-06-29 21:40 | Emergency (ER) | payer OTHER ==
[2019-06-29 21:58] VITALS: BMI 36.1
[2019-06-29] MEDS ORDERED: ONDANSETRON 4 MG/2 ML VIAL IVPUSH ONE (22:29)
[2019-06-29] MEDS ORDERED: MAG HYDROX/AL HYDROX/SIMETH 30 ML UNIT-DOSE CUP PO ONE (22:29)
[2019-06-29] MEDS ORDERED: SODIUM CHLORIDE 1,000 ML IV STA (22:29)
[2019-06-29] MEDS ORDERED: FAMOTIDINE 10 MG TABLET PO ONE (22:37)
[2019-06-29 22:51] LABS: BASO % 1.2 % (0-2.0); EOS % 1.8 % (0-4.5); HEMATOCRIT 49.8 % (35.4-49); HEMOGLOBIN 17.3 GM/dL (11.7-16.9); LYMPH % 32.2 % (8-40); MCH 29.8 pg (25.7-33.7); MCHC 34.7 g/dl (32.0-35.9); MEAN CELL VOLUME 85.8 fl (80-96); MEAN PLT VOLUME 7.7 fl (7.5-11.1); NEUT % 53.8 % (42.8-82.8); PLATELET COUNT 399 K/MM3 (134-434); RBC 5.81 M/mm3 (4.00-5.60); RDW 13.1 % (11.9-15.9); WHITE BLOOD COUNT 7.8 K/mm3 (4.0-10.0)
[2019-06-29] MEDS ORDERED: FAMOTIDINE 10 MG TABLET ONE (23:00)
[2019-06-29] MEDS ORDERED: MAG HYDROX/AL HYDROX/SIMETH 30 ML UNIT-DOSE CUP ONE (23:00)
[2019-06-29] MEDS ORDERED: ONDANSETRON 4 MG/2 ML VIAL ONE (23:01)
[2019-06-29 23:27] LABS: ALK PHOS 68 U/L (45-117); ANION GAP 7 MMOL/L (8-16); BILIRUBIN,TOTAL 0.5 mg/dL (0.2-1); BLOOD UREA NITROGEN 12.4 mg/dL (7-18); CALCIUM 9.7 mg/dL (8.5-10.1); CHLORIDE 106 mmol/L (98-107); CO2 25 mmol/L (21-32); CREATININE 1.1 mg/dL (0.55-1.3); GLUCOSE,RANDOM 90 mg/dL (74-106); POTASSIUM 4.1 mmol/L (3.5-5.1); SGOT/AST 26 U/L (15-37); SGPT/ALT 60 U/L (13-61); SODIUM 138 mmol/L (136-145); TOT PROT 8.3 g/dl (6.4-8.2)
--- NOTE | 2019-06-29 23:52 | PDOC ---
History of Present Illness - General Chief Complaint: Nausea/Vomiting Stated Complaint: NAUSEA/VOMITING Time Seen by Provider: 06/29/19 22:21 History Source: Patient Exam Limitations: No Limitations - History of Present Illness Travel History: No Initial Comments: 06/29/19 23:47 HISTORY OF PRESENT ILLNESS: 24-year-old man for H. pylori with quad therapy who presents emergency department for evaluation of epigastric pain after starting quad therapy for H. pylori. Patient reports the pain worsens when he lies down. He is unable to identify any aggravating or alleviating factors. He denies any chest pain, shortness of breath, nausea or vomiting. No recent travel or sick contacts. PAST MEDICAL HISTORY: H. pylori SURGICAL HISTORY: Denies ALLERGIES: Penicillins REVIEW OF SYSTEMS General/Constitutional: Denies fever or chills. Denies weakness, weight change. HEENT: Denies change in vision. Denies ear pain or discharge. Denies sore throat. Cardiovascular: Denies chest pain or shortness of breath. Respiratory: Denies cough, wheezing, or hemoptysis. Gastrointestinal: See HPI Genitourinary: Denies dysuria, frequency, or change in urination. Musculoskeletal: Denies joint or muscle swelling or pain. Denies neck or back pain. Skin and breasts: Denies rash or easy bruising. Neurologic: Denies headache, vertigo, loss of consciousness, or loss of sensation. Psychiatric: Denies depression or anxiety. Endocrine: Denies increased thirst. Denies abnormal weight change. Hematologic/Lymphatic: Denies anemia, easy bleeding, or history of blood clots. Allergic/Immunologic: Denies hives or skin allergy. Denies latex allergy. PHYSICAL EXAM General Appearance: Well-appearing, appropriately dressed. No apparent distress , no intoxication. Respiratory/Chest: Lungs CTAB. No shortness of breath, chest tenderness, respiratory distress, accessory muscle use. No crackles, rales, rhonchi, stridor , wheezing, dullness Cardiovascular: RRR. S1, S2. No JVD, murmur, bradycardia, tachycardia. Gastrointestinal/Abdominal: Normal bowel sounds. Abdomen soft, non-distended. Epigastric tenderness without guarding. No organomegaly, pulsatile mass, guarding, hernia, hepatomegaly, splenomegaly. Lymphatic: No adenopathy, tenderness. Integumentary: Appropriate color, dry, warm. No cyanosis, erythema, jaundice or rash Past History - Past Medical History Allergies/Adverse Reactions: Allergies Allergy/AdvReac Type Severity Reaction Status Date / Time Penicillins Allergy Verified 06/29/19 21:53 Home Medications: Ambulatory Orders Bismuth Subsalicylate [Kaopectate] 262 mg PO QID 06/29/19 Omeprazole 20 mg PO BID 06/29/19 Tetracycline HCl 250 mg PO QID 06/29/19 metroNIDAZOLE [Flagyl -] 250 mg PO QID 06/29/19 Asthma: Yes ( A CHILD) COPD: No DVT: No - Psycho Social/Smoking Cessation Hx Smoking Status: No Smoking History: Never smoked Have you smoked in the past 12 months: No Number of Cigarettes Smoked Daily: 0 Hx Alcohol Use: Yes (social) Drug/Substance Use Hx: Yes (marijuana) Substance Use Type: None *Physical Exam - Vital Signs Last Vital Signs Temp Pulse Resp BP Pulse Ox 99.8 F H 190 H 20 133/59 L 97 06/29/19 22:25 06/29/19 22:25 06/29/19 22:25 06/29/19 22:25 06/29/19 22:25 ED Treatment Course - LABORATORY CBC & Chemistry Diagram: 06/29/19 22:35 06/29/19 22:35 - ADDITIONAL ORDERS Additional order review: Laboratory Results 06/29/19 06/29/19 22:35 22:35 Sodium 138 Potassium 4.1 Chloride 106 Carbon Dioxide 25 Anion Gap 7 L BUN 12.4 Creatinine 1.1 Est GFR (CKD-EPI)AfAm 109.09 Est GFR (CKD-EPI)NonAf 94.12 Random Glucose 90 Calcium 9.7 Total Bilirubin 0.5 AST 26 ALT 60 Alkaline Phosphatase 68 Creatine Kinase 240 Troponin I < 0.02 Total Protein 8.3 H Albumin 4.0 Lipase 125 06/29/19 22:35 RBC 5.81 H MCV 85.8 MCHC 34.7 RDW 13.1 MPV 7.7 Neutrophils % 53.8 Lymphocytes % 32.2 D Monocytes % 11.0 H Eosinophils % 1.8 Basophils % 1.2 - Medications Given in the ED: ED Medications Discontinued Medications Generic Name Dose Route Start Last Admin Trade Name Freq PRN Reason Stop Dose Admin Al Hydroxide/Mg Hydroxide 30 ml 06/29/19 22:29 02/17/20 22:50 Mylanta Oral Suspension - PO 06/29/19 22:30 30 ml ONCE ONE Administration Famotidine 20 mg 06/29/19 22:37 06/29/19 23:36 Acid In Flight [employer]ueling [employer] PO 06/29/19 22:38 20 mg ONCE ONE Administration Sodium Chloride 1,000 mls @ 1,000 mls/hr 06/29/19 22:29 06/29/19 23:36 Normal Saline - IV 06/29/19 23:28 1,000 mls/hr ASDIR STA Administration Ondansetron HCl 4 mg 06/29/19 22:29 06/29/19 23:36 Zofran Injection IVPUSH 06/29/19 22:30 4 mg ONCE ONE Administration Medical Decision Making - Medical Decision Making 06/29/19 23:51 A/P: 24-year-old male with epigastric pain after starting quad therapy for H. pylori Most likely dyspepsia patient is already taken bismuth as part of his treatment for H. pylori. Labs including lipase and cardiac profile EKG Maalox Pepcid Reassess 06/30/19 00:02 Laboratory testing is unremarkable. EKG sinus rhythm with rate of 89. Normal intervals present. Normal axis. T wave flattening present in lead III and V1. No ST elevations or depressions present. Likely dyspepsia. I discussed the physical exam findings, ancillary test results and final diagnoses with the patient. I answered all of the patient's questions. The patient was satisfied with the care received and felt comfortable with the discharge plan and treatment plan. The patient will call their primary care physician within 24 hours to arrange follow-up and will return to the Emergency Department with any new, persistent or worsening symptoms. 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 Discharge - Discharge Information Problems reviewed: Yes Clinical Impression/Diagnosis: Dyspepsia Condition: Stable Disposition: HOME - Admission No - Follow up/Referral Referrals: Ester Horvath MD [Primary Care Provider] - Raul Pryor MD [Staff Physician] - - Patient Discharge Instructions Additional Instructions: Rest, drink lots of fluids: Teas, water, soups Rajni tigre, carbonated beverages for the bubbles May try peppermint teas Avoid heavy , spicy or fatty foods until symptoms have resolved Continue npyz-lag-ywyqfdb medications for symptomatic relief Tylenol or Motrin for fever and pain Continue previously prescribed medications. Followup with private physician/GI specialist in one to 2 days as needed Return to emergency department for worsened symptoms, fevers, dehydration - Post Discharge Activity
[2019-06-30 00:35] VITALS: BP 124/97; PULSE 89; TEMP 98.3
--- NOTE | 2019-06-30 09:17 | EKG ---
Test Reason : Blood Pressure : / mmHG Vent. Rate : 089 BPM Atrial Rate : 089 BPM P-R Int : 136 ms QRS Dur : 084 ms QT Int : 338 ms P-R-T Axes : 054 009 026 degrees QTc Int : 411 ms NORMAL SINUS RHYTHM MINIMAL VOLTAGE CRITERIA FOR LVH, MAY BE NORMAL VARIANT NONSPECIFIC T WAVE ABNORMALITY ABNORMAL ECG NO PREVIOUS ECGS AVAILABLE Confirmed by Rick Ramon MD ([id number]) on 06/30/2019 9:16:56 AM Referred By: Confirmed By:Rick Ramon MD
== END 2019-06-30 00:36 | disposition home or self-care (01) ==
LOC: JER 21:40
PROC: 3E033GC Introduction of Other Therapeutic Substance into Peripheral Vein, Percutaneous Approach (ICD-10-PCS; principal; 2019-06-29)
DX: R10.13 Epigastric pain (principal)
CPT/HCPCS: 36415; 80053; 82550; 82553; 83690; 84484; 85025; 93005; 93010; 96374; 99284-25; J7030

== ENCOUNTER 2019-07-16 11:57 | Emergency (ER) | payer OTHER ==
[2019-07-16 12:25] VITALS: BP 133/80; PULSE 104; TEMP 98.4; BMI 35.4
--- NOTE | 2019-07-16 13:00 | PDOC ---
History of Present Illness - General Chief Complaint: Cold Symptoms Stated Complaint: COLD SYS Time Seen by Provider: 07/16/19 12:29 History Source: Patient Exam Limitations: Clinical Condition - History of Present Illness Initial Comments: 07/16/19 13:01 Patient with no significant past medical history present with complaint of 4-day history of persisting cough, sore throat which he describes a dry throat, nasal congestion, and yellow sputum production and nausea. Patient also reported left ear pain since this morning. Denies vomiting, diarrhea, fevers, chills. Patient did not take anything for symptoms Is this a multiple visit Asthma Patient?: No Timing/Duration: other (4 days) Past History - Past Medical History Allergies/Adverse Reactions: Allergies Allergy/AdvReac Type Severity Reaction Status Date / Time Penicillins Allergy Verified 07/16/19 12:21 Home Medications: Ambulatory Orders Bismuth Subsalicylate [Kaopectate] 262 mg PO QID 06/29/19 Omeprazole 20 mg PO BID 06/29/19 Tetracycline HCl 250 mg PO QID 06/29/19 metroNIDAZOLE [Flagyl -] 250 mg PO QID 06/29/19 Azithromycin [Zithromax 250mg Tablets -] 250 mg PO UTDICT #6 tab 07/16/19 Guaifenesin Dm [Robitussin Dm -] 10 ml PO Q6H PRN #1 bottle 07/16/19 Ipratropium [place] 2 spray NS BID PRN 5 Days #1 spray 07/16/19 Neomycin/Polymyxin B/Hydrocort [Paoofpeq-Fcbydkhsj-Bz Ear Susp] 4 drop Q6H 5 Days #1 bottle 07/16/19 Asthma: Yes ( A CHILD) COPD: No DVT: No - Psycho Social/Smoking Cessation Hx Smoking Status: No Smoking History: Never smoked Have you smoked in the past 12 months: No Number of Cigarettes Smoked Daily: 0 Hx Alcohol Use: No Drug/Substance Use Hx: No Substance Use Type: None Review of Systems - Review of Systems Able to Perform ROS?: Yes Is the patient limited Greek proficient: No Constitutional: Yes: Malaise. No: Chills, Fever HEENTM: Yes: Symptoms Reported, See HPI, Ear Pain (left ear), Nose Congestion, Throat Pain. No: Eye Pain, Blurred Vision, Tearing, Recent change in vision, Double Vision, Cataracts, Ocular Prothesis, Ear Discharge, Nose Pain, Tinnitus, Nose Bleeding, Hearing Loss, Throat Swelling, Mouth Pain, Dental Problems, Difficulty Swallowing, Mouth Swelling, Other Respiratory: Yes: Symptoms reported, See HPI, Cough. No: Orthopnea, Shortness of Breath, SOB with Exertion, SOB at Rest, Stridor, Wheezing, Productive cough, Hemoptysis, Other Cardiac (ROS): No: Symptoms Reported, See HPI, Chest Pain, Edema, Irregular Heart Rate, Lightheadedness, Palpitations, Syncope, Chest Tightness, Other ABD/GI: No: Symptoms Reported, See HPI, Abd. Pain w/ defecation, Blood Streaked Bowels, Constipated, Diarrhea, Difficulty Swallowing, Nausea, Vomiting, Abdominal cramping : No: Symptoms Reported Musculoskeletal: No: Symptoms Reported Integumentary: No: Symptoms Reported, Rash Neurological: Yes: Symptoms reported, See HPI, Headache. No: Numbness, Paresthesia, Seizure, Tingling, Weakness, Dizziness All Other Systems: Reviewed and Negative *Physical Exam - Vital Signs Last Vital Signs Temp Pulse Resp BP Pulse Ox 98.4 F 104 H 18 133/80 98 07/16/19 12:21 07/16/19 12:21 07/16/19 12:21 07/16/19 12:21 07/16/19 12:21 - Physical Exam 07/16/19 12:54 GENERAL: Well developed, well nourished. Awake and alert. No acute distress. HEENT: Mild erythema to left external ear canal. Tympanic membrane normal bilateral. No right ear canal erythema. Normocephalic, atraumatic. PERRLA, EOMI. No conjunctival pallor. Sclera are non-icteric. Moist mucous membranes. Oropharynx is clear. NECK: Supple. Full ROM. CARDIOVASCULAR: Regular rate and rhythm. No murmurs, rubs, or gallops. PULMONARY: No evidence of respiratory distress. Lungs clear to auscultation bilaterally. No wheezing, rales or rhonchi. ABDOMINAL: Soft. Non-tender. Non-distended. No rebound or guarding. No organomegaly. Normoactive bowel sounds. MUSCULOSKELETAL Normal range of motion at all joints. SKIN: Warm and dry. Normal capillary refill. No rashes. No cyanosis. NEUROLOGICAL: Alert, awake, appropriate. Gait is normal without ataxia. PSYCHIATRIC: Cooperative. Good eye contact. Appropriate mood 07/16/19 13:11 General Appearance: Yes: Nourished, Appropriately Dressed. No: Apparent Distress Medical Decision Making - Medical Decision Making 07/16/19 13:10 Patient with no significant past medical history present with complaint of 4-day history of persisting cough, sore throat which he describes a dry throat, nasal congestion, and yellow sputum production and nausea. Patient also reported left ear pain since this morning. Denies vomiting, diarrhea, fevers, chills. Patient did not take anything for symptoms Exam significant for moderate erythema to left external ear canal with normal tympanic membrane otherwise normal exam. No pharyngeal erythema and lungs clear to auscultation bilateral. Patient afebrile. Patient symptoms likely URI with otitis externa. Patient stable for outpatient management on Z-Cem due to penicillin allergies for ear infection and Robitussin PRN for cough and Atrovent nasal spray for nasal congestion with advised to increase fluid intake with PCP follow-up Discharge - Discharge Information Problems reviewed: Yes Clinical Impression/Diagnosis: URI with cough and congestion Left otitis externa Qualifiers: Otitis externa type: unspecified type Chronicity: acute Qualified Code(s): H60.502 - Unspecified acute noninfective otitis externa, left ear Pharyngitis Qualifiers: Pharyngitis/tonsillitis etiology: unspecified etiology Qualified Code(s): J02.9 - Acute pharyngitis, unspecified Condition: Stable Disposition: HOME - Admission No - Additional Discharge Information Prescriptions: Ipratropium [place] 2 spray NS BID PRN 5 Days #1 spray PRN Reason: nasal congestion Neomycin/Polymyxin B/Hydrocort [[place]-Zkdrcpfqt-Vy Ear Susp] 4 drop Q6H 5 Days #1 bottle Guaifenesin Dm [Robitussin Dm -] 10 ml PO Q6H PRN #1 bottle PRN Reason: Cough Azithromycin [Zithromax 250mg Tablets -] 250 mg PO UTDICT #6 tab - Follow up/Referral Referrals: Aundrea Baer MD [Primary Care Provider] - - Patient Discharge Instructions Patient Printed Discharge Instructions: DI for Otitis Externa Additional Instructions: Take prescribed medication as prescribed for symptoms. Increase fluid intake. Follow-up with primary care as needed - Post Discharge Activity
== END 2019-07-16 13:10 | disposition home or self-care (01) ==
LOC: JERFT 11:57
DX: J06.9 Acute upper respiratory infection, unspecified (principal); J02.9 Acute pharyngitis, unspecified; H60.502 Unspecified acute noninfective otitis externa, left ear; Z88.0 Allergy status to penicillin; Z87.09 Personal history of other diseases of the respiratory system
CPT/HCPCS: 99281-25